=== PATIENT | male | born 1970 | race Caucasian/White ===

== ENCOUNTER 2022-05-23 08:38 | Emergency (ER) | payer BC ==
[~2022-05-23] VITALS: Ht 180.3 cm; Wt 115.7 kg
[2022-05-23 08:38] VITALS: BP_SYST 147; BP_SYST 157; BP_DIAS 104
--- NOTE | 2022-05-23 08:38 | NUR ---
ARRIVAL PT ARRIVED AMBULATORY TO ED 6 WITH C/O LLQ PAIN SINCE YESTERDAY. PT HAS A HISTORY OF DIVERTICULITIS AND HE STATES IT FEELS LIKE THAT. VITALS TAKEN AND DR NOTIFIED.
--- NOTE | 2022-05-23 08:57 | ER.PDOC ---
General Chief Complaint: Requesting Medical Care Stated Complaint: LOWER ABD PAIN Time seen by MD: 08:57 Source: patient Exam Limitations: no limitations History of Present Illness Initial Comments 52 yo wm presented with left lower quad pain. [place]. No fever,no sx No chest pain No dyspnea Has had some diarrhea and increasing cramping since yesterday. No hematachesia nor melana. Has been nauseated as well. C/o chills yesterday PMH: HBP,Cholesterol,glucose intolerance Non smoker. No local MD. Timing/Duration: 24 hours Severity/Quality: moderate Radiation: no radiation Associated Symptoms: diarrhea, fever/chills, nausea/vomiting Exacerbated by: nothing Relieved By: nothing Allergies: Coded Allergies: No Known Allergies (Unverified , 05/23/22) Vital Signs First Vital Signs Date Time Temp Pulse Resp B/P (MAP) Pulse Ox O2 Delivery O2 Flow Rate FiO2 05/23/22 08:38 98.5 97 18 05/23/22 08:38 147/104 (118) 97 Room Air* 0 21 Last Vital Signs Date Time Temp Pulse Resp B/P (MAP) Pulse Ox O2 Delivery O2 Flow Rate FiO2 05/23/22 08:38 98.5 97 18 97 05/23/22 08:38 147/104 (118) Room Air* 0 21 Past Medical History Medical History: high cholesterol, hypertension, other (glucose intolerance) Surgical History: no surgical history Family History Significant Family History: no pertinent family hx Social History Smoking: non-smoker Drug Use: none Reviewed Nursing Reviewed: Vital Signs, Abn. Noted, Nursing Assessment Constitutional: see HPI, chills EENTM: no symptoms reported Respiratory: no symptoms reported Cardiovascular: no symptoms reported Gastrointestinal: see HPI, diarrhea, nausea Genitourinary: no symptoms reported Musculoskeletal: no symptoms reported Skin: no symptoms reported Psychiatric/Neurological: no symptoms reported Endocrine: no symptoms reported Hematologic/Lymphatic: no symptoms reported All Other Systems: Reviewed and Negative Physical Exam General Appearance: WD/WN, Anxious, Mild Distress HEENT: PERRL/EOMI, Normal ENT Inspection, Pharynx Normal Neck: Non-Tender, Full Range of Motion, Supple, Normal Inspection Respiratory: chest non-tender, lungs clear, normal breath sounds, no respiratory distress Cardiovascular: Regular Rate, Rhythm, No Murmur Gastrointestinal: Normal Bowel Sounds, No Organomegaly, No Pulsatile Mass, Soft, Tenderness Rectal: Deferred Back: Normal Inspection Extremities: Normal Range of Motion 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/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: 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 II-XII NML as Tested Skin: Normal Color Lymphatic: No Adenopathy Results/Orders Results/Orders Orders - ESTHER GATICA MD Cbc With Auto Diff (05/23/22 09:14) Comprehensive Metabolic Panel (05/23/22 09:14) Ct Abd/Pel With Iv Contrast (05/23/22 09:14) Urinalysis (05/23/22 09:14) 0.9 % Sodium Chloride (Ns 1000ml) (05/23/22 09:30) Ketorolac Tromethamine (Toradol) (05/23/22 09:30) 0.9 % Sodium Chloride (Ns 1000ml) (05/23/22 09:19) Ketorolac Tromethamine (Toradol) (05/23/22 09:19) Urine Culture (05/23/22 09:23) Levofloxacin 500mg In D5w (Levaquin) (05/23/22 10:26) Levofloxacin 500mg In D5w (Levaquin) (05/23/22 10:35) Vital Signs Date Time Temp Pulse Resp B/P (MAP) Pulse Ox O2 Delivery O2 Flow Rate FiO2 05/23/22 08:38 98.5 97 18 97 05/23/22 08:38 98.5 97 18 147/104 (118) 97 Room Air* 0 21 05/23/22 08:38 98.5 97 18 Administered Medications Medications (Trade) Dose Ordered Sig/Shoaib Route PRN Reason Start Time Stop Time Status Last Admin Dose Admin Ketorolac Tromethamine (Toradol) 30 mg Q6H PRN IV PAIN 4 - 05/23/22 09:30 05/28/22 09:29 05/23/22 09:25 30 MG Levofloxacin/ Dextrose 100 ml @ 100 mls/hr STAT STAT IV 05/23/22 10:26 05/23/22 11:25 05/23/22 10:45 100 MLS/HR Sodium Chloride 1,000 ml @ 0 mls/hr Q0M ONCE IV 05/23/22 09:30 05/23/22 09:31 DC 05/23/22 09:24 1,200 MLS/HR Laboratory Tests Test 05/23/22 09:03 05/23/22 09:23 White Blood Count 16.0 10^3/uL (4.5-11.0) H Red Blood Count 5.17 10^6/uL (4.50-5.90) Hemoglobin 16.2 g/dL (13.9-16.3) Hematocrit 45.8 % (37.0-53.0) Mean Corpuscular Volume 88.6 fL (78-100) Mean Corpuscular Hemoglobin 31.3 pg (26-34) Mean Corpuscular Hemoglobin Concent 35.4 g/dL (33-36.5) Red Cell Distribution Width 12.4 % (11.5-14.5) Platelet Count 252 10^3/uL (150-400) Mean Platelet Volume 10.4 fL (7.8-11.0) Neutrophils (%) (Auto) 75.5 % (41.0-85.0) Lymphocytes (%) (Auto) 13.6 % (24.0-44.0) L Monocytes (%) (Auto) 9.7 % (5.0-12.0) Neutrophils # (Auto) 12.1 10^3/uL (1.8-7.7) H Lymphocytes # (Auto) 2.17 10^3/uL1 (1.0-4.8) Monocytes # (Auto) 1.6 10^3/uL (0.3-0.8) H Absolute Immature Granulocyte (auto 0.02 10^3 u/L (0-2) Absolute Eosinophils (auto) 0.1 10^3/uL (0.0-0.2) Immature Granulocytes % 0.10 % (0.00-0.50) Eosinophils % 0.9 % (0.0-5.0) Basophils % 0.2 % (0.0-0.2) Basophils # 0.0 10^3/uL (0.0-0.1) Sodium Level 137 mmol/L (132-145) Potassium Level 3.7 mmol/L (3.6-5.2) Chloride Level 102.0 mmol/L (96-109) Carbon Dioxide Level 23.1 mmol/L (20.0-32) Anion Gap 15.6 Blood Urea Nitrogen 7 mg/dL (7-18) Creatinine 0.98 mg/dL (0.59-1.40) Estimated GFR () 98.0 (>/=60) Est GFR (CKD-EPI)(Non-Afr Micronesian) 81.0 (>/=60) BUN/Creatinine Ratio 7.0 (10.0-20.0) L Glucose Level 161 mg/dL (70-110) H Calcium Level 9.2 mg/dL (8.4-10.5) Total Bilirubin 1.9 mg/dL (0.2-1.0) H Aspartate Amino Transferase (AST) 15 U/L (0-35) Alanine Aminotransferase (ALT) 33 U/L (12-78) Alkaline Phosphatase 82 U/L (50-136) Total Protein 7.8 g/dL (6.4-8.2) Albumin 3.9 g/dL (3.4-5.0) Globulin 3.9 Albumin/Globulin Ratio 1.000 Urine Collection Type RANDOM Urine Color ARYAN Urine Appearance CLEAR Urine Bilirubin 1+ (NEGATIVE) H Urine Ictotest POSITIVE (NEGATIVE) H Urine Ketones TRACE (NEGATIVE) H Urine Specific [place] 1.025 (1.005-1.030) Urine pH 5.0 (4.5-8.0) Urine Protein 1+ (NEGATIVE) H Urine Urobilinogen 0.2 E.U./dL (0.2) Urine Nitrate NEGATIVE (NEGATIVE) Urine Leukocyte Esterase NEGATIVE (NEGATIVE) Urine Glucose (Auto)(UA) NEGATIVE (NEGATIVE) Urine Blood 2+ (NEGATIVE) H Urine RBC 2-5 RBC/HPF (NONE SEEN) Urine WBC 0-2 WBC/HPF (0-2) Urine Squamous Epithelial Cells FEW (<=FEW) Urine Bacteria FEW (NONE SEEN) H suspect gilberts syndrom with the bilirubin(normal liver functions) 16K wbc with diverticulitis Urine hematuria. Could be due to hyperdynamic state, or due to renal cyst Progress Progress I discussed findings and labs with patient at 10:35. Informed of CT report as well. I recommended inpatient though could try out patient if desired. He opted for home trial of antibiotics and antiemetics as well as analgesia [place] [employer] no activity EKG/XRAY/CT/US CT Comments: CT repeort sigmoid diverticulitis and no abscess formation ER DEPART Departure Time of Disposition: 10:39 Disposition: 01 HOME / SELF CARE / HOMELESS Impression: Primary Impression: Diverticulitis Additional Impressions: Gilbert syndrome Hematuria Renal cyst Condition: Stable Referrals: PCP,UNKNOWN (PCP) PRIMARY CARE PROVIDER Comments return if worse clear fuid flagyl 500mg bid x 7 days levaquin x 7 days zofran 4mg odt tylenol#3 Duration or Time Spent with Pa: 30 Problem Qualifiers ESTHER GATICA MD May 23, 2022 08:57
[2022-05-23] MEDS ORDERED: TORADOL ONE (09:19)
[2022-05-23] MEDS ORDERED: NS 1000ML 1,000 ML ONE (09:19)
[2022-05-23 09:26] LABS: BASOPHIL % 0.2 % (0.0-0.2); EOSINOPHIL # 0.1 10^3/uL (0.0-0.2); EOSINOPHIL % 0.9 % (0.0-5.0); LYMPHOCYTES # 2.17 10^3/uL1 (1.0-4.8); LYMPHOCYTES % 13.6 % (24.0-44.0); MEAN CORP HGB 31.3 pg (26-34); MONOCYTES # 1.6 10^3/uL (0.3-0.8); MONOCYTES % 9.7 % (5.0-12.0); NEUTROPHIL # 12.1 10^3/uL (1.8-7.7); NEUTROPHILS % 75.5 % (41.0-85.0); PLATELET COUNT 252 10^3/uL (150-400); RED CELL DISTRIBUTION WIDTH 12.4 % (11.5-14.5)
[2022-05-23] MEDS ORDERED: NS 1000ML 1,000 ML IV ONE (09:30)
[2022-05-23] MEDS ORDERED: TORADOL IV PRN (09:30)
[2022-05-23 09:41] LABS: BILIRUBIN,URINE 1+ (NEGATIVE); UROBILINOGEN,URINE 0.2 E.U./dL (0.2)
[2022-05-23 09:42] LABS: CARBON DIOXIDE 23.1 mmol/L (20.0-32)
--- NOTE | 2022-05-23 10:23 | DIREP ---
PROCEDURE:CT ABDOMEN/PELVIS W/ CONTRAST COMPARISON:None. INDICATIONS:left lower quad pain TECHNIQUE:Axial images were created through the abdomen and pelvis with non-ionic intravenous contrast material. No oral contrast was administered. Sagittal and coronal reconstructions were performed from source images. FINDINGS: LUNG BASES:Normal. No visible pulmonary or pleural disease. LIVER:Normal. No significant liver lesions are identified. BILIARY:Normal. No visible dilatation or calcification. PANCREAS:Normal. No lesion, fluid collection, ductal dilatation, or atrophy. SPLEEN:Normal. No enlargement or focal lesion. ADRENALS:Normal. No mass or enlargement. URINARY TRACT:1.2 cm cyst of the medial middle pole of the right kidney. No urinary calculi or hydronephrosis. AORTA/VASCULAR:Normal. No aneurysm. RETROPERITONEUM:Normal. No mass or adenopathy. BOWEL/MESENTERY:There are multiple colonic diverticula. There is thickening of the wall of the proximal sigmoid colon with edema/inflammation present in the adjacent pericolonic fat. This is consistent with acute diverticulitis. No abscess or other abnormal fluid collection is visualized. No obstruction or free air are present. The appendix appears normal. ABDOMINAL WALL:Normal. No mass or hernia. PELVIC ORGANS:Normal. No visible mass. Pelvic organs appropriate for patient age. BONES:Normal for age. No bony lesion or acute fracture. OTHER:Negative. CONCLUSION: 1. Findings consistent with acute diverticulitis of the proximal sigmoid colon. 2. Right renal cyst. Dictated by: Alan Cochran M.D. on 05/23/2022 at 10:16 AM
[2022-05-23] MEDS ORDERED: LEVAQUIN 100 ML IV STA (10:26)
[2022-05-23] MEDS ORDERED: LEVAQUIN 100 ML IV ONE (10:35)
[2022-05-23 11:47] VITALS: BP 126/77
== END 2022-05-23 11:50 | disposition home or self-care (01) ==
LOC: ER 08:38
DX: K57.92 Diverticulitis of intestine, part unspecified, without perforation or abscess without bleeding (principal); E80.4 Gilbert syndrome; N28.1 Cyst of kidney, acquired; R31.9 Hematuria, unspecified; E78.00 Pure hypercholesterolemia, unspecified; I10 Essential (primary) hypertension
CPT/HCPCS: 99284; 74177; 96365; 96361; 96375; 87086; 80053; 85025; 36415; 87186; 87077; J7030; A4649; J1956; J1885; Q9965; 81001; 82550; 82553; 83880; 84484; 85379; 85610; 85730